=== PATIENT | male | born 1980 | race Caucasian/White ===

== ENCOUNTER 2020-12-14 18:14 | Emergency (ER) | payer SELFPAY ==
--- NOTE | 2020-12-14 18:17 | ED.ALLEREA ---
HPI - Allergic Reaction General Chief complaint: Allergic Reaction Stated complaint: allergic rx, stung by bees 15-20 times Time Seen by Provider: 12/14/20 18:31 Source: patient and EMS Mode of arrival: EMS Limitations: no limitations History of Present Illness HPI narrative: 40-year-old male with no significant past medical history presents via EMS for multiple bee stings with systemic reaction. He does not have a prior history of anaphylaxis with bee stings however he was stung by proximally 20 honey bees. He had some shortness of breath, swelling to the extremities, redness and tachycardia. He was given IV fluids but no other medications on transit. MD complaint: allergic reaction Onset (ago): hour(s) (Within the hour of arrival) Exposure: other (Bee sting) Symptoms: rash, itching and dizziness Severity: moderate Treatment prior to arrival: IV fluids Previous Allergic Reaction History: none Related Data Allergies Allergy/AdvReac Type Severity Reaction Status Date / Time amoxicillin Allergy Hives Verified 12/14/20 18:23 Review of Systems Review of Systems: Constitutional: No Fever, No Chills ENT/Mouth: No Ear Pain, No Hoarseness, No sore throat Eyes: No Eye Pain, No Swelling, No Redness, No Foreign Body Cardiovascular: No Chest Pain, positive SOB, positive tachycardia Respiratory: No Cough, No Dyspnea Gastrointestinal: No Nausea, No Vomiting, No Diarrhea, No abdominal Pain Genitourinary: No Dysuria, No Hematuria Musculoskeletal: positive extremity pain, No Myalgias, No Joint Swelling Skin: No Skin lacerations, positive rash to extremities Neuro: No Weakness, No Numbness, No Paresthesias, No Loss of Consciousness, No Dizziness, No Headache Psych: No Anxiety/Panic, No Depression Heme/Lymph: no easy bruising, no Lymphadenopathy Endocrine: No Polyuria, No Polydipsia Yes all other systems are reviewed and are negative [facility] Past Medical History Attestation statement: The following information was validated with the patient. Source: old records reviewed Social History Social History Advance Directives: No Advance Directives Information Provided: Yes Physical Exam Vital Signs: Vital Signs: Last Vital Signs Temp 98.3 F 12/14/20 19:10 Pulse 96 12/14/20 19:10 Resp 16 07/17/21 19:10 BP 112/69 12/14/20 19:10 Pulse Ox 96 12/14/20 19:10 Body Mass Index 35.3 Appearance: Alert. Oriented X3. Moderate distress. Head: Normal external exam. Normocephalic. Atraumatic. No Glynn signs noted. No raccoon eyes noted Eyes: PERRLA. EOMI. Conjunctiva and sclera normal. Eyelids normal. ENT: Pharynx normal. Uvula midline. Moist mucous membranes. No trismus noted. No drooling noted. No muffled voice noted. No angioedema, no tracheal stridor Neck: Normal inspection. Neck supple. No adenopathy. CVS: Tachycardic heart rate and rhythm. Heart sound normal. No murmurs noted. Pulses equal to all extremities. Respiratory: No respiratory distress. Painless inspiration. Lung sounds clear to auscultation all lobes. Chest nontender. No accessory muscle usage noted or decreased air movement noted. Abdomen: Soft and nontender. Bowel sounds normal in all 4 quadrants. No distention noted. No organomegaly noted. No visible injury noted. Back: No CVA tenderness. Full range of motion noted. Skin: Skin warm and dry. Erythema noted to abdomen, bilateral thighs, and face. Normal skin turgor. Extremities: No lower extremity edema. Extremities exhibit normal range of motion. Extremities nontender. Neuro: cranial nerves 2-12 intact, no focal neural deficits, strength 5/5 to all extremities, No motor deficit. No sensory deficit. Course Course Course Narrative: 40-year-old male presents for allergic reaction after multiple bee stings. Received IV fluids while on transit, will give Solu-Medrol 125, Pepcid 20, and Benadryl 50 IV. Will monitor. 8:00 p.m. lung sounds clear to auscultation, no indication of erythema or rash to any extremity or chest. Plan of care is to discharge home with follow-up with primary care physician for allergy testing. Patient verbalized understanding of and agrees plan of care discharge home. MDM - Allergic Reaction Differential Diagnosis Differential diagnosis: Likely anaphylaxis, allergic reaction and urticaria Medical Records Attestation: I reviewed the patient's medical records. Discharge Plan Discharge Clinical Impression: Allergic reaction to bee sting Allergic reaction Qualifiers: Encounter type: initial encounter Qualified Code(s): T78.40XA - Allergy, unspecified, initial encounter Patient Disposition: Home, Self-Care Instructions: Insect Bite or Sting (ED), General Allergic Reaction (ED) Additional Instructions: You were evaluated for multiple bee stings. We did treat for an allergic reaction. Please take Benadryl 50 mg every 6 hours for the next 3 days. Please take Pepcid 20 mg every 12 hours for the next 3 days. These medications will help reduce histamine response. Please follow-up with primary care for allergy testing. Thank you for choosing this emergency department for evaluation. Please follow-up with primary care physician as needed. Return to the emergency department for any new, concerning, or worsening symptoms.
[2020-12-14 18:23] VITALS: BP 116/79; BP 122/88; PULSE 101; PULSE 90; RESP 16; TEMP 36.6; O2SAT 97; BMI 35.3
[2020-12-14] MEDS: methylPREDNISolone Sod Succ 125 MG/2 ML VIAL IVPUSH (18:33)
[2020-12-14] MEDS: diphenhydrAMINE HCL 50 MG/ML VIAL IVPUSH (18:33)
[2020-12-14] MEDS: Famotidine/PF 20 MG/2 ML VIAL IVPUSH (18:33)
[2020-12-14 19:10] VITALS: BP 112/69; PULSE 96; RESP 16; TEMP 36.8; O2SAT 96
== END 2020-12-14 20:18 | disposition home or self-care (01) ==
PROVIDERS: Emergency Provider Internal Medicine
DX: T63.441A Toxic effect of venom of bees, accidental (unintentional), initial encounter (principal); Y92.9 Unspecified place or not applicable
CPT/HCPCS: 96374; 96375; 99284; J1200; J2930

== ENCOUNTER 2023-07-27 01:29 | Emergency (ER) | payer SELFPAY ==
[2023-07-27 01:32] VITALS: BP 163/97; PULSE 84; RESP 18; TEMP 36.7; O2SAT 96; BMI 36.5
[2023-07-27 01:45] LABS: MANUAL DIFF FLAG NO
[2023-07-27 01:47] LABS: Basophils Percent Auto 0.3 % (0-2); Eosinophils Absolute Auto 0.1 X10*3/uL (0.0-0.4); Eosinophils Percent Auto 0.6 % (0-4); Hematocrit 43.2 % (42.0-52.0); Hemoglobin 15.2 g/dl (14.0-18.0); Imm Gran Abs Auto 0.07 X10*3/uL (0.00-0.03); Imm Gran Pct Auto 0.4 % (0.0-0.4); Lymphocytes Absolute Auto 2.7 X10*3/uL (1.2-4.9); Lymphocytes Percent Auto 17.1 % (20-40); Mean Corpuscular HGB Conc 35.2 g/dl (31.0-36.0); Mean Corpuscular Hemoglobin 30.2 pg (27.0-33.0); Mean Corpuscular Volume 85.9 fL (80.0-98.0); Mean Platelet Volume 10.5 fL (9.4-12.4); Monocytes Absolute Auto 1.1 X10*3/uL (0.1-1.2); Monocytes Percent Auto 6.9 % (2-11); Neutrophils Absolute Auto 11.7 x10*3/uL (2.0-8.3); Neutrophils Percent Auto 74.7 % (45-73); Platelet Count 230 X10*3/uL (160-400); Red Blood Count 5.03 X10*6/uL (4.60-5.80); White Blood Count 15.7 X10*3/uL (4.8-10.8)
[2023-07-27 02:01] LABS: Alanine Aminotransferase 81 U/L (0-40); Albumin Level 4.9 g/dL (3.5-5.0); Alkaline Phosphatase 65 U/L (39-117); Anion Gap 18 (12-20); Aspartate Amino Transferase 40 U/L (5-37); Bilirubin Total 0.6 mg/dL (0.0-1.0); Blood Urea Nitrogen 16 mg/dL (9-16); Carbon Dioxide 25 mmol/L (22-29); Chloride 103 mmol/L (96-108); Creatinine Clr Calc Pharmacy 81.7; Estimated Glomerular Filt Rate 56; Glucose Random 128 mg/dL (60-115); Potassium 4.6 mmol/L (3.3-5.1); Sodium 141 mmol/L (135-145); Total Protein 7.5 g/dL (6.5-8.0)
--- NOTE | 2023-07-27 02:24 | MHC.EDTECH ---
Patient said he is not able to give urine sample at this time .
[2023-07-27 03:48] VITALS: BP 155/93; PULSE 90; RESP 16; TEMP 37.2
--- NOTE | 2023-07-27 03:51 | PC.NURSE ---
pt reports wants to leave; has not been evaluated by ed provider. pt states hes aware of risks of leaving however feels his sx have resolved. pt educated to follow up with pcp or return if any sx return/worsen. pt axox4 ambulatory with steady gait.
== END 2023-07-27 03:55 | disposition left against medical advice (07) ==
PROVIDERS: Emergency Provider Emergency Medicine
DX: R10.9 Unspecified abdominal pain (principal); Z79.899 Other long term (current) drug therapy
CPT/HCPCS: 36415; 80053; 85025; 99283

== ENCOUNTER 2023-08-28 09:22 | Emergency (ER) | payer SELFPAY ==
--- NOTE | ~2023-08-28 | CT_ITS ---
EXAMINATION: CT abdomen pelvis wo IV con CLINICAL INFORMATION: Reason for Exam left flank pain, N/V COMPARISON: No prior CT available for comparison. TECHNIQUE: Multidetector volumetric imaging was performed from the superior aspect of the liver through the pubic symphysis , noncontrast this study. Sagittal and coronal reformatted images were obtained on the technologist's workstation. This CT examination was performed using dose optimization techniques as appropriate, variously including the following: *Automated exposure control *Adjustment of mA and/or kV according to patient size (this includes techniques or standardized protocols for targeted exams where dose is matched to indication/reason for exam; i.e. extremities or head) *Use of iterative reconstruction technique DLP: 799 mGy-cm FINDINGS: LOWER THORAX: Included lung bases are clear. HEPATOBILIARY: Diffusely hypodense liver suggesting hepatic steatosis. No CT evidence of liver lesion. Focal hypodense area in the liver left lobe adjacent to the gallbladder, the location is common for focal fat sparing. GALLBLADDER: Gallbladder unremarkable. SPLEEN: Spleen is normal in size. PANCREAS: No focal mass or ductal dilatation. STOMACH AND GASTROINTESTINAL TRACT: Stomach is grossly unremarkable. There is no bowel distention or thickening. No CT evidence of appendicitis. ADRENALS: No adrenal nodules. KIDNEYS/URETERS: Left renal hydronephrosis and hydroureter due to 9 x 5 mm obstructing stone in the distal left ureter proximal to the left ureterovesicular junction. There is mild perinephric and periureteric fat stranding suggesting high degree obstruction. There are 3 nonobstructing stone in the right kidney measuring up to 4 mm. No right hydronephrosis. There are additional 2 mm stones in the left kidney middle calyx and lower calyx. URINARY BLADDER: Partially decompressed. PELVIC VISCERA: Unremarkable PERITONEUM: No free air or fluid. LYMPH NODES: No lymphadenopathy. VASCULAR:Abdominal aorta normal in size, no aneurysm found. BONES, ABDOMINAL WALL AND SOFT TISSUES: Age-appropriate changes of the spine and skeletal system, no destructive osteolytic or osteosclerotic bone lesion found CT/CT abdomen pelvis wo IV con IMPRESSION: 1. Left renal hydronephrosis and hydroureter due to obstructing 9 x 5 mm stone in the distal left ureter proximal to the left ureterovesicular junction. There is mild perinephric and periureteric fat stranding suggesting high degree obstruction. 2. There are additional bilateral nonobstructing kidney stones. 3. Diffusely hypodense liver suggesting hepatic steatosis. Focal hypodense area in the liver left lobe adjacent to the gallbladder, the location is common for focal fat sparing.
[2023-08-28 09:34] VITALS: BP 161/95; PULSE 83; RESP 18; TEMP 36.6; O2SAT 100; BMI 35.0
--- NOTE | 2023-08-28 10:07 | ED_ITS ---
HPI - General Adult General Chief complaint: General Medical Stated complaint: kidney stone diff breathing Time Seen by Provider: 08/28/23 09:47 Source: patient Mode of arrival: ambulatory Limitations: no limitations History of Present Illness HPI narrative: 42 yo male with history of kidney stones presents to the ER for evaluation of worsening left-sided flank pain that started 3 days ago and has been getting worse. He states he vomited 3 times today due to the pain. He states the pain is located in his left flank, left lower back and has been intensifying. It feels similar to his last kidney stone episode. He states he has had 3 episodes of kidney stones, all passed on his own and did not require intervention. He states he has noticed some small amounts of blood in his urine the last couple of days. Does not have any abdominal pain, dysuria, difficulty emptying his bladder, fever, chills. MD complaint: Left flank pain and blood in the urine Onset (ago): day(s) (3) Location: back Radiation: non-radiation Severity: severe Quality: stabbing Pain Consistency: intermittent Relieving factors: none Exacerbating factors: none Associated symptoms: shortness of breath Treatments prior to arrival: none Related Data Previous Rx's Medication Instructions Recorded cephalexin 500 mg capsule 500 mg PO BID 7 days #14 caps 08/28/23 ondansetron 4 mg disintegrating 4 mg PO Q8H PRN nausea and 08/28/23 tablet vomiting #7 tabs oxycodone 5 mg tablet 5 mg PO Q8H PRN severe pain (scale 08/28/23 score 7-10) #6 tabs tamsulosin 0.4 mg capsule (Flomax) 0.4 mg PO DAILY #14 caps 08/28/23 Allergies Allergy/AdvReac Type Severity Reaction Status Date / Time amoxicillin Allergy Hives Verified 07/27/23 01:32 Review of Systems 2 Review of Systems: Yes all other systems are reviewed and are negative PMFSH Social History Social History Advance Directives: No Advance Directives Information Provided: No Physical Exam ED Vital Signs: Vital Signs - 24 hr 08/28/23 09:34 08/28/23 14:22 Temperature 97.9 F Pulse Rate 83 82 Respiratory Rate 18 14 Blood Pressure 161/95 H 136/86 Pulse Oximetry 100 96 Oxygen Delivery Method Room Air Room Air BMI result Body Mass Index 35.0 Appearance: Alert. Oriented X3. No acute distress. Head: normocephalic, atraumatic. Eyes: Pupils equal, round and reactive to light. ENT: Pharynx normal. No tonsillar swelling or exudate. Neck: Normal inspection. Neck supple. CVS: Normal heart rate and rhythm. Pulses normal. Respiratory: No respiratory distress. Breath sounds normal. Abdomen: Soft and nontender. +BS x4. +CVA tenderness on the left Skin: Skin warm and dry. Normal skin color. Normal skin turgor. No rashes. Extremities: No lower extremity edema. No joint swelling. Neuro/psych: Oriented X 3. No motor deficit. No sensory deficit. CN II-XII intact. Normal speech and cognition. Course Reevaluation(s) Reevaluation #1: Pain improved with pain medications. BP remained stable. Patient is getting 2 L of lactated Ringer's. Time: 14:25 Medications Administered Generic Name Dose Route Start Last Admin Trade Name Freq PRN Reason Stop Dose Admin Lactated Ringer's 1,000 mls @ 999 mls/hr 08/28/23 14:00 08/28/23 14:12 Lr IV 08/28/23 15:00 999 mls/hr .Q1H1M JEANNETTE Administration Discontinued Medications Generic Name Dose Route Start Last Admin Trade Name Freq PRN Reason Stop Dose Admin Sodium Chloride 1,000 mls @ 999 mls/hr 08/28/23 10:00 08/28/23 11:03 Ns IV 08/28/23 11:00 999 mls/hr .Q1H1M JEANNETTE Administration Lactated Ringer's 1,000 mls @ 999 mls/hr 08/28/23 12:45 08/28/23 12:50 Lr IV 08/28/23 13:45 999 mls/hr .Q1H1M JEANNETTE Administration Ketorolac Tromethamine 15 mg 08/28/23 09:47 08/28/23 11:02 Ketorolac Tromethamine 15 Mg/Ml Vial IVPUSH 08/28/23 09:48 15 mg ONCE ONE Administration Ondansetron HCl 4 mg 08/28/23 09:47 08/28/23 11:01 Ondansetron Hcl 4 Mg/2 Ml Vial IVPUSH 08/28/23 09:48 4 mg ONCE ONE Administration Oxycodone HCl 5 mg 08/28/23 12:37 08/28/23 12:50 Oxycodone Hcl Immed Release 5 Mg Tablet PO 08/28/23 12:38 5 mg ONCE ONE Administration Tamsulosin HCl 0.4 mg 08/28/23 12:37 08/28/23 12:50 Tamsulosin Hcl 0.4 Mg Capsule PO 08/28/23 12:38 0.4 mg ONCE ONE Administration Medical Decision Making Medical Decision Making [facility] Narrative: 42-year-old male with a history of kidney stones presents to the ER for evaluation of severe left-sided flank pain, on and off for the last 3 days. Associated with vomiting today. Pain is similar to previous kidney stone presentation. Labs showing mild leukocytosis 12.4. There is blood in the urine. Normal renal function. CT scan performed with concern for kidney stone and this reveals a 9 x 5 mm stone in the distal left ureter with hydronephrosis, perinephric stranding suggesting a high degree obstruction. Urology was consulted. Dr. Hdz is recommended 2 additional L of LR, pain control, keflex BID, flomax and office follow up on Wednesday morning at 8:30. Differential Diagnosis Differential Diagnoses: The differential diagnosis associated with the presentation includes Obstructing kidney stone, UTI, pyelonephritis, splenic injury, diverticulitis Admission/Observation Consideration of admission/observation: Escalation of care including admission/observation considered Obstructing kidney stone, unlikely to pass however pain was well controlled Consult Healthcare Provider Management of the patient was discussed with: Supervisor [employer] Dr. Hdz from Urology Lab Data [facility] Lab Attestation statement: I reviewed the patient's lab results. Slight leukocytosis, slight JAY 08/28/23 10:16 08/28/23 10:16 Labs: Lab Results 08/28/23 Range/Units 10:16 WBC 12.4 H (4.8-10.8) X10*3/uL RBC 5.00 (4.60-5.80) X10*6/uL Hgb 15.1 (14.0-18.0) g/dl Hct 42.0 (42.0-52.0) % MCV 84.0 (80.0-98.0) fL MCH 30.2 (27.0-33.0) pg MCHC 36.0 (31.0-36.0) g/dl RDW 12.3 (11.0-16.0) % Plt Count 228 (160-400) X10*3/uL MPV 9.8 (9.4-12.4) fL Immature Gran % (Auto) 0.2 (0.0-0.4) % Neut % (Auto) 77.7 H (45-73) % Lymph % (Auto) 13.2 L (20-40) % Bureau % (Auto) 8.5 (2-11) % Eos % (Auto) 0.2 (0-4) % Baso % (Auto) 0.2 (0-2) % Lymph # (Auto) 1.6 (1.2-4.9) X10*3/uL Bureau # (Auto) 1.1 (0.1-1.2) X10*3/uL Eos # (Auto) 0.0 (0.0-0.4) X10*3/uL Baso # (Auto) 0.0 (0.0-0.2) X10*3/uL Abs Immat Gran (auto) 0.03 (0.00-0.03) X10*3/uL Absolute Neuts (auto) 9.6 H (2.0-8.3) x10*3/uL Absolute Nucleated RBC 0.000 (0.0-0.012) X10*3/uL Nucleated RBC % (auto) 0.0 (0.0-0.2) /100WBC Sodium 138 (135-145) mmol/L Potassium 5.1 (3.3-5.1) mmol/L Chloride 104 (96-108) mmol/L Carbon Dioxide 24 (22-29) mmol/L Anion Gap 15 (12-20) BUN 17 H (9-16) mg/dL Creatinine 1.65 H (0.5-1.4) mg/dL Estim Creat Clear Calc 73.2 Estimated GFR 46 Random Glucose 118 H (60-115) mg/dL Calcium 10.1 (8.4-10.2) mg/dL Magnesium 1.9 (1.6-2.6) mg/dL Total Bilirubin 1.1 H (0.0-1.0) mg/dL Direct Bilirubin 0.4 (0.0-0.5) mg/dL AST 32 (5-37) U/L ALT 53 H (0-40) U/L Alkaline Phosphatase 66 (39-117) U/L Total Protein 7.5 (6.5-8.0) g/dL Albumin 4.8 (3.5-5.0) g/dL Urine Color Yellow Urine Appearance Turbid Urine pH 6.0 (5.0-9.0) Ur Specific Itmann >= 1.030 H (1.005-1.025) Urine Protein Trace (Neg-Trace) mg/dL Urine Glucose (UA) Negative (Negative) mg/dL Urine Ketones Trace (Negative) mg/dL Urine Blood Moderate (2+) H (Negative) Urine Nitrite Negative (Negative) Ur Leukocyte Esterase Negative (Negative) Urine RBC >20 H (0-2) /HPF Urine WBC 0-5 (0-5) /HPF Ur Squamous Epith Cells 0-2 (0-2) /HPF Urine Bacteria None Seen (None Seen) Hyaline Casts 3-5 (0-2) /LPF Independent Interpretation I performed an independent interpretation of an: CT Scan Interpretation: Large stone seen in the distal ureter on the left with hydronephrosis Radiology Impression Discussion of test interpretation with radiology: I have reviewed the radiologist's reading. Radiologist Impression: CT/CT abdomen pelvis wo IV con IMPRESSION: 1. Left renal hydronephrosis and hydroureter due to obstructing 9 x 5 mm stone in the distal left ureter proximal to the left ureterovesicular junction. There is mild perinephric and periureteric fat stranding suggesting high degree obstruction. 2. There are additional bilateral nonobstructing kidney stones. 3. Diffusely hypodense liver suggesting hepatic steatosis. Focal hypodense area in the liver left lobe adjacent to the gallbladder, the location is common for focal fat sparing External Record Review External record reviewed: Prior outpatient labs Prescription Management I considered prescription management with: Pain Medication and Antibiotic Critical Care Time Critical Care Time Critical Care Time: Yes Total Critical Care Time: 39 Attestation: I have personally provided critical care time exclusive of time spent on separately billable procedures. Time includes review of lab data, radiology results, discussion with consultants, and monitoring for potential decompensation. Intervention performed as documented. Discharge Plan Discharge Clinical Impression: Hydronephrosis with renal calculous obstruction Patient Disposition: Home, Self-Care Instructions: Ureteral Stones (ED) Additional Instructions: A large kidney stone approximately 9 x 5 mm was seen in your distal left ureter. The Urology DrThom Was contacted who is recommending pain control, Flomax, antibiotics and close outpatient follow-up. You have an appointment with Dr. Hdz on Wednesday morning at 08:15. Take all medications as prescribed. If you develop new or worsening symptoms call 911 or come back to the ER for further evaluation. Prescriptions: New cephalexin 500 mg capsule 500 mg PO BID 7 Days Qty: 14 0RF tamsulosin [Flomax] 0.4 mg capsule 0.4 mg PO DAILY Qty: 14 0RF ondansetron 4 mg tablet,disintegrating 4 mg PO Q8H PRN (Reason: nausea and vomiting) Qty: 7 0RF oxycodone 5 mg tablet 5 mg PO Q8H PRN (Reason: severe pain (scale score 7-10)) Qty: 6 0RF Rx Instructions: Partial Fill upon patient request. Referrals: [facility] [place] [Provider Group] - 08/30/23 8:15 am ( Left renal hydronephrosis and hydroureter due to obstructing 9 x 5 mm stone in the distal left ureter proximal to the left ureterovesicular junction. There is mild perinephric and periureteric fat stranding suggesting high degree obstruction.) Stand Alone Forms: Work/School Release
[2023-08-28 10:20] LABS: MANUAL DIFF FLAG NO
[2023-08-28 10:21] LABS: Basophils Percent Auto 0.2 % (0-2); Eosinophils Percent Auto 0.2 % (0-4); Hemoglobin 15.1 g/dl (14.0-18.0); Imm Gran Abs Auto 0.03 X10*3/uL (0.00-0.03); Imm Gran Pct Auto 0.2 % (0.0-0.4); Lymphocytes Absolute Auto 1.6 X10*3/uL (1.2-4.9); Lymphocytes Percent Auto 13.2 % (20-40); Mean Corpuscular Hemoglobin 30.2 pg (27.0-33.0); Mean Platelet Volume 9.8 fL (9.4-12.4); Monocytes Absolute Auto 1.1 X10*3/uL (0.1-1.2); Monocytes Percent Auto 8.5 % (2-11); Neutrophils Absolute Auto 9.6 x10*3/uL (2.0-8.3); Neutrophils Percent Auto 77.7 % (45-73); Platelet Count 228 X10*3/uL (160-400); Red Cell Distribution Width 12.3 % (11.0-16.0); White Blood Count 12.4 X10*3/uL (4.8-10.8)
[2023-08-28 10:22] LABS: Appearance Urine Turbid; Color Urine Yellow; Glucose Urine UA Negative (Negative); Leukocyte Esterase Urine Negative (Negative); Nitrite Urine Negative (Negative); Specific Gravity - Urine >= 1.030 (1.005-1.025); UMIC TRIGGER UACC YES; Urine Blood Moderate (2+) (Negative); Urine Ketones Trace mg/dL (Negative); Urine Protein Trace mg/dL (Neg-Trace)
[2023-08-28 10:27] LABS: Bacteria Urine None Seen (None Seen); RBC Urine >20 /HPF (0-2); Squamous Epithelial Cell Urine 0-2 /HPF (0-2); WBC Urine 0-5 /HPF (0-5)
[2023-08-28 10:41] LABS: Alanine Aminotransferase 53 U/L (0-40); Albumin Level 4.8 g/dL (3.5-5.0); Alkaline Phosphatase 66 U/L (39-117); Anion Gap 15 (12-20); Aspartate Amino Transferase 32 U/L (5-37); Bilirubin Direct 0.4 mg/dL (0.0-0.5); Bilirubin Total 1.1 mg/dL (0.0-1.0); Blood Urea Nitrogen 17 mg/dL (9-16); Calcium 10.1 mg/dL (8.4-10.2); Carbon Dioxide 24 mmol/L (22-29); Chloride 104 mmol/L (96-108); Creatinine Clr Calc Pharmacy 73.2; Estimated Glomerular Filt Rate 46; Glucose Random 118 mg/dL (60-115); Magnesium 1.9 mg/dL (1.6-2.6); Potassium 5.1 mmol/L (3.3-5.1); Sodium 138 mmol/L (135-145); Total Protein 7.5 g/dL (6.5-8.0)
[2023-08-28] MEDS: ondansetron HCL 4 MG/2 ML VIAL IVPUSH (11:01)
[2023-08-28] MEDS: Ketorolac Tromethamine 15 MG/ML VIAL IVPUSH (11:02)
[2023-08-28] MEDS: 0.9 % Sodium Chloride 1,000 ML 999 ML IV (11:03)
[2023-08-28] MEDS: Tamsulosin HCL 0.4 MG CAPSULE PO (12:50)
[2023-08-28] MEDS: oxyCODONE HCl Immed Release 5 MG TABLET PO (12:50)
[2023-08-28] MEDS: Lactated Ringers 1,000 ML 999 ML IV ×2 (12:50→14:12)
[2023-08-28 14:22] VITALS: BP 136/86; PULSE 82; RESP 14; O2SAT 96
[2023-08-28 15:10] VITALS: BP 128/86; PULSE 89; RESP 16; TEMP 36.6; O2SAT 94
[2023-08-28 15:11] VITALS: BP 128/86; PULSE 89; RESP 16; TEMP 36.6; O2SAT 94
== END 2023-08-28 15:12 | disposition home or self-care (01) ==
PROVIDERS: Physician Assistant; Emergency Provider Student in an Organized Health Care Education/Training Program
DX: N13.2 Hydronephrosis with renal and ureteral calculous obstruction (principal)
CPT/HCPCS: 36415; 74176; 80048; 80076; 81001; 83735; 85025; 96374; 96375; 99284; J1885; J2405; J7120

== ENCOUNTER 2023-08-30 08:18 | Outpatient (AMB) | payer SELFPAY ==
--- NOTE | 2023-08-30 08:26 | MHC.OFFVIS ---
Intake Intake Visit Reasons: ER-obstructing ureteral stone Intake Note: New Patient presents today to establish treatment for obstructing uretral stone Meds- Tamsulosin Allergies to Antibiotic- Amoxicillin Blood Thinner- None Patient stated he does not have any pain today and he is able to urinate very well. Beading Sawyer Required: No Accompanied by: Self / Same As Patient Allergies amoxicillin Allergy (Verified 08/30/23 08:42) Hives HPI HPI Comments History of Present Illness Details Clarke is a 43-year-old male who was in the ED over the weekend with left flank pain. CT imaging noted distal left ureteral stone with hydronephrosis and bilateral kidney stones. The patient states he had a kidney stone attack about 10 years ago and he passed the stone at that time. About 4 weeks ago he had pain on his left side that resolved. He states that he was discharged on medications he is taking the Flomax. He no longer has needed nausea or pain medication and did not take the antibiotics. He thinks he may have passed the stone because he has no more pain. He states that his father has kidney stones. I have reviewed the CT scan imaging films with the patient. Examination no CVA tenderness elicited or abdominal tenderness on exam. The ureteral stone measured 9 mm and due to the size is less likely to pass however at this time as the patient is asymptomatic he is not interested in a procedure. Plan will be to evaluate further with renal ultrasound in about 2 weeks if the patient has acute pain he will call the office. Discussed metabolic workup in the future with 24 hour urine collection. He was given a plastic strainer and a copy of the CT scan report. Review of Systems Const All systems reviewed & are unremarkable except as noted in HPI and below Reports no additional complaints Eyes Reports no additional complaints ENT Reports no additional complaints Card Reports no additional complaints Resp Reports no additional complaints GI Reports no additional complaints Reports as per HPI Musc Reports no additional complaints Skin/Breast Reports system reviewed and no additional complaints, except as documented Neuro Reports no additional complaints Psych Reports no additional complaints Endo Reports no additional complaints Alexis/Lymph Reports no additional complaints Aller/Immun Reports no additional complaints Physical Exam Const General: healthy appearing, no acute distress and well developed Orientation/consciousness: patient oriented x3 HEENT Head: Yes normocephalic and Yes atraumatic Eyes Conjunctivae: conjunctivae normal Neck Neck: Yes normal visual inspection Chest Chest palpation & inspection: normal inspection of the chest Resp Effort & Inspection: normal respiratory effort Cardio Rate: regular rate GI Inspection: Yes normal to inspection Palpation (GI): Soft to palpation Skin General skin exam: no rashes or lesions noted Neuro General: patient oriented x3 Extrem General: No pedal edema Psych Appearance: grossly normal Affect: normal affect Results AMB Urinalysis, Automated UA Leukoctes 0 Juan A/uL Last Edit by Melinda Portersummer Porter, [facility] on 08/30/23 08:45 UA Nitrite Negative Last Edit by Melinda Portersummer Rodneya, [facility] on 08/30/23 08:45 UA Urobilinogen 0.2 mg/dL [facility], [facility] on 08/30/23 08:45 UA Protein 15 mg/dL Last Edit by Melinda Porter Porter, [facility] on 08/30/23 08:45 UA pH 6.0 Last Edit by [facility], [facility] on 08/30/23 08:45 UA Blood 200 Kelechi/uL Last Edit by [facility], [facility] on 08/30/23 08:45 UA Specific [place] 1.020 Last Edit by [facility], [facility] on 08/30/23 08:45 UA Ketone Negative Last Edit by [facility], [facility] on 08/30/23 08:45 UA Bilirubin 0 mg/dL Last Edit by [facility], [facility] on 08/30/23 08:45 UA Glucose 0 mg/dL Last Edit by [facility], [facility] on 08/30/23 08:45 Results Reviewed Results Reviewed: Date of Service: 08/28/23 EXAMINATION: CT abdomen pelvis wo IV con CLINICAL INFORMATION: Reason for Exam left flank pain, N/V COMPARISON: No prior CT available for comparison. TECHNIQUE: Multidetector volumetric imaging was performed from the superior aspect of the liver through the pubic symphysis , noncontrast this study. Sagittal and coronal reformatted images were obtained on the technologist's workstation. This CT examination was performed using dose optimization techniques as appropriate, variously including the following: *Automated exposure control *Adjustment of mA and/or kV according to patient size (this includes techniques or standardized protocols for targeted exams where dose is matched to indication/reason for exam; i.e. extremities or head) *Use of iterative reconstruction technique DLP: 799 mGy-cm FINDINGS: LOWER THORAX: Included lung bases are clear. HEPATOBILIARY: Diffusely hypodense liver suggesting hepatic steatosis. No CT evidence of liver lesion. Focal hypodense area in the liver left lobe adjacent to the gallbladder, the location is common for focal fat sparing. GALLBLADDER: Gallbladder unremarkable. SPLEEN: Spleen is normal in size. PANCREAS: No focal mass or ductal dilatation. STOMACH AND GASTROINTESTINAL TRACT: Stomach is grossly unremarkable. There is no bowel distention or thickening. No CT evidence of appendicitis. ADRENALS: No adrenal nodules. KIDNEYS/URETERS: Left renal hydronephrosis and hydroureter due to 9 x 5 mm obstructing stone in the distal left ureter proximal to the left ureterovesicular junction. There is mild perinephric and periureteric fat stranding suggesting high degree obstruction. There are 3 nonobstructing stone in the right kidney measuring up to 4 mm. No right hydronephrosis. There are additional 2 mm stones in the left kidney middle calyx and lower calyx. URINARY BLADDER: Partially decompressed. PELVIC VISCERA: Unremarkable PERITONEUM: No free air or fluid. LYMPH NODES: No lymphadenopathy. VASCULAR:Abdominal aorta normal in size, no aneurysm found. BONES, ABDOMINAL WALL AND SOFT TISSUES: Age-appropriate changes of the spine and skeletal system, no destructive osteolytic or osteosclerotic bone lesion found IMPRESSION: 1. Left renal hydronephrosis and hydroureter due to obstructing 9 x 5 mm stone in the distal left ureter proximal to the left ureterovesicular junction. There is mild perinephric and periureteric fat stranding suggesting high degree obstruction. 2. There are additional bilateral nonobstructing kidney stones. 3. Diffusely hypodense liver suggesting hepatic steatosis. Focal hypodense area in the liver left lobe adjacent to the gallbladder, the location is common for focal fat sparing. Assessment & Plan Assessment & Plan (1) Bilateral kidney stones: Code(s): N20.0 - Calculus of kidney (2) Hydronephrosis, left: Code(s): N13.30 - Unspecified hydronephrosis (3) Left ureteral stone: Code(s): N20.1 - Calculus of ureter Plan The ureteral stone measured 9 mm and due to the size is less likely to pass however at this time as the patient is asymptomatic he is not interested in a procedure. Plan will be to evaluate further with renal ultrasound in about 2 weeks if the patient has acute pain he will call the office. Discussed metabolic workup in the future with 24 hour urine collection. He was given a plastic strainer and a copy of the CT scan report. Orders: Orders AMB Urinalysis Automated Today R33.9 - Retention of urine, unspecified Patient Instructions: The patient had an opportunity to ask questions regarding treatment plan. All questions were answered. Imaging, Laboratory studies and physical exam results were discussed and reviewed in detail. No major barriers to understanding were identified. The patient expressed understanding and agreement with the above treatment plan. The patient is aware they should contact our office by phone for worsening of their current condition or the appearance of new symptoms. Compliance is encouraged with any medications and followup testing that is ordered. It is a privilege to be allowed the opportunity to participate in the urologic care of your patient. If you have any questions or concerns regarding treatment for the above conditions please do not hesitate to contact me. The office telephone contact is [phone]. This note is constructed in part using voice recognition software. While every effort has been made to ensure accuracy aviation safety technician errors may have been included. Yours sincerely, Mike Ashford MD Coding Level of Care Code New Pt Level 4 (76559) Diagnoses Bilateral kidney stones N20.0 Hydronephrosis, left N13.30 Left ureteral stone N20.1
== END 2023-08-30 09:00 | disposition home or self-care (01) ==
PROVIDERS: Visit Provider Urology
DX: R33.9 Retention of urine, unspecified (principal)
CPT/HCPCS: 99204

== ENCOUNTER → 2023-08-30 08:18 | Outpatient (BNVA) | payer SELFPAY | PROVIDERS: Visit Provider Urology | DX: N13.2 Hydronephrosis with renal and ureteral calculous obstruction (principal); R33.9 Retention of urine, unspecified | CPT/HCPCS: 81003; 99202 ==

== ENCOUNTER 2023-09-01 14:34 | Day surgery (SDC) | payer SELFPAY ==
[2023-09-01] VITALS (8 sets, daily range): BP systolic 124–165; BP diastolic 76–98; PULSE 82–99; RESP 16–18; TEMP 36.1–37.4; O2SAT 95–98; BMI 37.2
--- NOTE | ~2023-09-01 | FL_ITS ---
EXAMINATION: XR FLUOROSCOPY WITH IMAGES CLINICAL INFORMATION: Left distal ureteral stone COMPARISON: CT of the abdomen and pelvis August 28, 2023 TECHNIQUE: Fluoroscopy Supervised By: Dr. Ashford. Fluoroscopy Time: 29 seconds. Cumulative Dose: 13.8 mGy. Images: 3. FINDINGS: Initial image demonstrates opacification of the left distal ureter. There is an oval-shaped filling defect questionable for stone. Second image demonstrates wire projecting over the left renal collecting system and proximal and mid ureter. Final image demonstrates distal end of a left internal ureteral stent with pigtail projecting over the bladder. FL/FL guidance in OR IMPRESSION: Fluoroscopy guidance for left retrograde exam and stent placement.
--- NOTE | 2023-09-01 16:27 | HO.ANESPROP2 ---
HPI - Anesthesia Eval Consult details Narrative: for cysto, retro, laser. PMFSH Active Problems Active Problems: All Active Problems (Updated 08/30/23 @ 08:38 by Mike Ashford MD) Left ureteral stone (Acute) Hydronephrosis, left (Acute) Bilateral kidney stones (Acute) Family History Family history of problems with anesthesia: No Surgical History Surgical History (Updated 09/01/23 @ 15:52 by Nevaeh Parker) No pertinent past surgical history History of Problems with Anesthesia: No Social History Social History Patient Tobacco Use Status: Never used Tobacco Use of substances other than those prescribed or required for medical reasons: No Are you DNR?: No Advance Directives: No Advance Directives Information Provided: No Meds Allergies Allergy/AdvReac Type Severity Reaction Status Date / Time amoxicillin Allergy Severe Hives Verified 09/01/23 15:50 Exam Height,Weight and Vital Signs: Height 5 ft 9 in Weight 114.124 kg Last Vital Signs Temp 99.3 F 09/01/23 15:59 Pulse 99 09/01/23 15:59 Resp 16 09/01/23 15:59 BP 165/93 H 09/01/23 15:59 Pulse Ox 97 09/01/23 15:59 O2 Del Method Room Air 09/01/23 15:59 Airway Mallampati Class: II TM Dist: >3cm Neck ROM: Full Loose/Missing/Broken Teeth: No Heart: ok Lungs: ok Assessment and Plan Assessment Anesthesia Assessment: Anesthesia Plan Discussed and Chart Reviewed Final Anesthetic Review Family History of Problems with Anesthesia: No History of Problems with Anesthesia: No NPO: Yes ASA Class: II Final Preanesthetic Review: No Changes in Pt Med Stat, Meds/Allgs Chart Reviewed, Consent Obtained/Reviewed and Anes Risks/Benef Reviewed Patient Risk: Low Procedure Risk: Low Anesthetic Plan Anesthetic Plan: GA and Agree w/ Assess. and Plan Disposition: Standard PACU
--- NOTE | 2023-09-01 16:31 | MHC.SHP ---
Pre-Procedural Eval Section A - 24 Hr Update-Section A only Date of Service: 09/01/23 The patient is an INPATIENT: No The patient has been examined within 24 hours of the surgical procedure. The History & Physical has been completed within 30 days and I have reviewed it.: Yes Section B - Complete if H&P > 30 days Chief Complaint: Calculus of kidney Allergies: Allergies Allergy/AdvReac Type Severity Reaction Status Date / Time amoxicillin Allergy Severe Hives Verified 09/01/23 15:50 Plan Diagnosis/Plan: Unchanged I have reviewed the history and physical and performed a pertinent physical examination on my patient. No changes have occurred unless specified. Cystoscopy Left Ureteroscopy Laser lithotripsy, ureteral stent. Risks discussed included but not limited to, possible need to repeat procedure if stone is not completely fragmented, Irritative voiding symptoms, bladder spasms, urgency, blood in urine. Time Spent With Patient Time: Total time managing care of this patient today ____ minutes.
[2023-09-01] MEDS: Lactated Ringers 1,000 ML 80 ML IVCONT (16:38)
--- NOTE | 2023-09-01 19:13 | P.OP_ITS ---
Operative Note Operative Note Date of Service: 09/01/23 Narrative: PreOperative Diagnosis:?? Left ureteral stone, left hydronephrosis Post Operative Diagnosis:?? Left ureteral stone, left hydronephrosis Procedure: - cystoscopy, left retrograde, left ureteroscopy laser lithotripsy stent insertion, 6 Amharic by multi length, 22-32 cm Surgeon:?Dr Mike Ashford Anesthesia:? General Indications for procedure: Left flank pain CT imaging 9 mm distal left ureteral stone with hydronephrosis. Procedure: After informed consent was verified the patient was brought to the operating placed on the OR table in supine position.? General Anesthesia was administered per protocol.? The patient was placed in lithotomy position, prepped and draped in the usual sterile fashion.? Safety pause time-out and side of surgery confirmed.? Antibiotics confirmed, Levaquin 500 mg IV. 2% lidocaine jelly 10 mL was passed transurethrally. A 22 Amharic cystoscope was inserted transurethrally, the bulbous urethra was within normal limits. The prostatic urethra was nonobstructive. The bladder was visualized.? Both ureteric orifices were in normal position. An open-ended ureteral catheter was passed into the left ureteral orifice and a retrograde examination was performed. There was a filling defect consistent with stone in the distal ureter and dilatation of the ureter proximal this. A guidewire was passed through the ureteral catheter into the kidney. The balloon dilator size 12 fr by 4 cm was passed over the guide - wire the balloon was inflated to 10 mmHg and the intramural ureter was dilated for 45 seconds. The balloon was deflated and removed. After removing the balloon dilator a 2nd guidewire was then passed into the kidney to use as a safety. The cystoscope was removed, leaving both guidewires in place. One guidewire was used as the safety and was attached to the draping. The semi rigid ureteroscope was passed over one of the guidewire to the level of the stone in the ureter. One guidewire was then removed. Laser lithotripsy of the stone was done using the 365 fiber -- total joules 816. There was good fragmentation of the stone. The 0 degree basket was passed through the ureteroscope, to remove the stone fragments to send for analysis. The ureteroscope was removed. The cystoscope was passed over the safety guidewire. A? 6 Amharic by multi length cm stent was placed into the ureter and renal pelvis under a combination of fluoroscopy and direct visualization. The bladder was emptied.? The rigid cystoscope was removed. ? The patient tolerated the procedure well and was brought to the recovery room in stable condition. Complications: None Drains: Ureteral stent as dictated above
[2023-09-01] MEDS: Phenazopyridine HCL 200 MG TABLET PO (19:42)
[2023-09-01] MEDS: oxyCODONE HCl Immed Release 5 MG TABLET 10 MG PO (20:12)
[2023-09-13 21:47] LABS: Stone Source KIDNEY STONE
== END 2023-09-01 20:28 | disposition home or self-care (01) ==
PROVIDERS: Visit Provider Urology
PROC: (CPT 52356; principal; 2023-09-01 17:00)
DX: N13.2 Hydronephrosis with renal and ureteral calculous obstruction (principal); N13.1 Hydronephrosis with ureteral stricture, not elsewhere classified; Z88.0 Allergy status to penicillin
CPT/HCPCS: 52356; 52341; 82365; 88300; C1726; C1769; C2617; J1100; J1885; J1956; J2250; J2405; J2704; J3010; Q9967

== ENCOUNTER → 2023-09-01 14:34 | Outpatient (BNV) | payer SELFPAY | PROVIDERS: Visit Provider Urology | DX: N20.1 Calculus of ureter (principal); N13.30 Unspecified hydronephrosis | CPT/HCPCS: 52356; 74420 ==

== ENCOUNTER 2023-09-10 08:17 | Outpatient (AMB) | payer SELFPAY ==
--- NOTE | 2023-09-10 08:34 | A.OFFVIS_ITS ---
Intake Intake Visit Reasons: Stent Removal Intake Note: Patient presents today for a CYSTOSCOPY/STENT REMOVAL Procedure: Meds: None Allergies to Antibiotic: No Known Allergies Blood Thinner: None Disposable Uro-G HD Cystoscope Cannula: Lot: [id number] Exp: 04/22/2026 [employer] Required: No Accompanied by: Self / Same As Patient Allergies amoxicillin Allergy (Severe, Verified 09/10/23 08:37) Hives Medication List - Last Reconciled 09/10/23 by Mike Ashford MD ondansetron 4 mg PO Q8H PRN oxycodone 5 mg PO .[id number] PRN phenazopyridine (Pyridium) 200 mg PO TID PRN tamsulosin (Flomax) 0.4 mg PO DAILY HPI HPI Comments History of Present Illness Details 09/10/23--follow-up for cystoscopy stent removal. Status post cystoscopy right ureteroscopy laser lithotripsy left ureteral stone, 09/01/2023. Stone analysis is pending. Cystoscopy left ureteral stent removed without difficulty. Diet sheet provided including information on diet modification to decrease risk of forming more kidney stones. low oxalate diet and specific foods to avoid including certain green leafy vegetables, chocalate, nuts, tea, beets, rubarb; low sodium, decreased use of animal protein and the importance of hydration drinking up to 2-2.5 liters of fluids and use of adding lemon to water to increase citrate in the diet. I also discussed workup to include 24 hour urine, patient was given lab information to call regarding [id number] cost if he does not have insurance coverage. Plan--discussed 24 hour urine collection, stone analysis pending, monitor kidney stones follow-up in 10 months renal ultrasound prior. Review of chart: 08/30/23--Clarke is a 43-year-old male who was in the ED over the weekend with left flank pain. CT imaging noted distal left ureteral stone with hydronephrosis and bilateral kidney stones. The patient states he had a kidney stone attack about 10 years ago and he passed the stone at that time. About 4 weeks ago he had pain on his left side that resolved. He states that he was discharged on medications he is taking the Flomax. He no longer has needed nausea or pain medication and did not take the antibiotics. He thinks he may have passed the stone because he has no more pain. He states that his father has kidney stones. I have reviewed the CT scan imaging films with the patient. Examination no CVA tenderness elicited or abdominal tenderness on exam. The ureteral stone measured 9 mm and due to the size is less likely to pass however at this time as the patient is asymptomatic he is not interested in a procedure. Plan will be to evaluate further with renal ultrasound in about 2 weeks if the patient has acute pain he will call the office. Discussed metabolic workup in the future with 24 hour urine collection. He was given a plastic strainer and a copy of the CT scan report. 09/10/23--Plan--discussed 24 hour urine c ollection, stone analysis pending, ata tor kidney stones follow-up in 10 months renal ultrasound prior. [facility] Surgical History No pertinent past surgical history Social History Patient Tobacco Use Status: Never used Tobacco Review of Systems Const All systems reviewed & are unremarkable except as noted in HPI and below Reports no additional complaints Eyes Reports no additional complaints ENT Reports no additional complaints Card Reports no additional complaints Resp Reports no additional complaints GI Reports no additional complaints Reports as per HPI Musc Reports no additional complaints Skin/Breast Reports system reviewed and no additional complaints, except as documented Neuro Reports no additional complaints Psych Reports no additional complaints Endo Reports no additional complaints Alexis/Lymph Reports no additional complaints Aller/Immun Reports no additional complaints Office Procedures Cystoscopy Consent Discussed risk and benefit or proposed procedure with the patient. Information consent for procedure given to the patient. Discussed technical aspects, risks, benefits and alternatives in full. Addressed all of the patient's questions and concerns regarding the procedure. The patient demonstrated knowledge and understanding. They wish to proceed with this procedure. Preparation The patient was prepped in the usual manner. A accountant machine processing was present and in the room. Genitalia was prepped with betadine solution in a sterile manner. Lidocaine Jelly 2% was placed into the urethra and 16Fr flexible Olympus cystoscope was inserted into the meatus after adequate lubrication. Procedure Time out per protocol performed. Bladder Inspection Cystoscopy findings: mild edema ureteral orifice which is expected, distal end of ureteral stent visualized. The grasping forceps were used and the stent was removed without difficulty. [id number] with stent removal DISPOSABLE SCOPE URO-G FLEXIBLE SCOPE Procedure code (CPT) selection complete Office Meds lidocaine HCl 2 % mucosal jelly in applicator Performing Provider: Mike Ashford MD Performing Location: [facility] Administered by: Faisal Cadet LPN on 09/10/23 08:34 Dose Route Admin Location Dispensed Lot Number Expiration Date [facility] Chief Psychologist 10 mL intra-urethral 20 mL naproxen 500 mg tablet Performing Provider: Mike Ashford MD Performing Location: [facility] Administered by: Faisal Cadet LPN on 09/10/23 08:34 Dose Route Admin Location Dispensed Lot Number Expiration Date [place] Chief Psychologist 500 mg PO 1 tab ciprofloxacin HCl 500 mg tablet Performing Provider: Mike Ashford MD Performing Location: [facility] Administered by: Faisal Cadet LPN on 09/10/23 08:34 Dose Route Admin Location Dispensed Lot Number Expiration Date [place] Chief Psychologist 500 mg PO 1 tab Results AMB Urinalysis, Automated UA Leukoctes 125 Juan A/uL Last Edit by FARRAH Lawrence on 09/10/23 08:41 2+ [place] 09/10/23 08:41 UA Nitrite Positive Last Edit by FARRAH Lawrence on 09/10/23 08:41 UA Urobilinogen 0.2 mg/dL Last Edit by FARRAH Lawrence on 09/10/23 08:4 1 2+ [place] 09/10/23 08:41 UA Protein 100 mg/dL Last Edit by FARRAH Lawrence on 09/10/23 08:41 2+ [place] 09/10/23 08:41 UA pH 6.0 Last Edit by FARRAH Lawrence on 09/10/23 08:41 UA Blood 200 Kelechi/uL Last Edit by FARRAH Lawrence on 09/10/23 08:41 3+ [place] 09/10/23 08:41 UA Specific [place] 1.015 Last Edit by FARRAH Lawrence on 09/10/23 08: 41 UA Ketone Negative Last Edit by FARRAH Lawrence on 09/10/23 08:41 UA Bilirubin 1 mg/dL Last Edit by FARRAH Lawrence on 09/10/23 08:41 UA Glucose 0 mg/dL Last Edit by FARRAH Lawrence on 09/10/23 08:41 Results Reviewed Results Reviewed: Laboratory Last Values Urine pH (Auto) 6.0 09/10/23 08:38 Specific [place] (Auto) 1.015 09/10/23 08:38 Urine Protein (Auto) 100 mg/dL 09/10/23 08:38 Glucose (UA)(Auto) 0 mg/dL 09/10/23 08:38 Urine Ketones (Auto) Negative 09/10/23 08:38 Urine Blood (Auto) 200 Kelechi/uL 09/10/23 08:38 Urine Nitrite (Auto) Positive 09/10/23 08:38 Urine Bilirubin (Auto) 1 mg/dL 09/10/23 08:38 Urine Urobilinogen (Auto) 0.2 mg/dL 09/10/23 08:38 Leukocyte Esterase (Auto) 125 Juan A/uL 09/10/23 08:38 Date of Service: 08/28/23 EXAMINATION: CT abdomen pelvis wo IV con CLINICAL INFORMATION: Reason for Exam left flank pain, N/V COMPARISON: No prior CT available for comparison. TECHNIQUE: Multidetector volumetric imaging was performed from the superior aspect of the liver through the pubic symphysis , noncontrast this study. Sagittal and coronal reformatted images were obtained on the technologist's workstation. This CT examination was performed using dose optimization techniques as appropriate, variously including the following: *Automated exposure control *Adjustment of mA and/or kV according to patient size (this includes techniques or standardized protocols for targeted exams where dose is matched to indication/reason for exam; i.e. extremities or head) *Use of iterative reconstruction technique DLP: 799 mGy-cm FINDINGS: LOWER THORAX: Included lung bases are clear. HEPATOBILIARY: Diffusely hypodense liver suggesting hepatic steatosis. No CT evidence of liver lesion. Focal hypodense area in the liver left lobe adjacent to the gallbladder, the location is common for focal fat sparing. GALLBLADDER: Gallbladder unremarkable. SPLEEN: Spleen is normal in size. PANCREAS: No focal mass or ductal dilatation. STOMACH AND GASTROINTESTINAL TRACT: Stomach is grossly unremarkable. There is no bowel distention or thickening. No CT evidence of appendicitis. ADRENALS: No adrenal nodules. KIDNEYS/URETERS: Left renal hydronephrosis and hydroureter due to 9 x 5 mm obstructing stone in the distal left ureter proximal to the left ureterovesicular junction. There is mild perinephric and periureteric fat stranding suggesting high degree obstruction. There are 3 nonobstructing stone in the right kidney measuring up to 4 mm. No right hydronephrosis. There are additional 2 mm stones in the left kidney middle calyx and lower calyx. URINARY BLADDER: Partially decompressed. PELVIC VISCERA: Unremarkable PERITONEUM: No free air or fluid. LYMPH NODES: No lymphadenopathy. VASCULAR:Abdominal aorta normal in size, no aneurysm found. BONES, ABDOMINAL WALL AND SOFT TISSUES: Age-appropriate changes of the spine and skeletal system, no destructive osteolytic or osteosclerotic bone lesion found IMPRESSION: 1. Left renal hydronephrosis and hydroureter due to obstructing 9 x 5 mm stone in the distal left ureter proximal to the left ureterovesicular junction. There is mild perinephric and periureteric fat stranding suggesting high degree obstruction. 2. There are additional bilateral nonobstructing kidney stones. 3. Diffusely hypodense liver suggesting hepatic steatosis. Focal hypodense area in the liver left lobe adjacent to the gallbladder, the location is common for focal fat sparing. Assessment & Plan Assessment & Plan (1) Bilateral kidney stones: Code(s): N20.0 - Calculus of kidney Plan Plan--discussed 24 hour urine collection, stone analysis pending, monitor kidney stones follow-up in 10 months renal ultrasound prior. Orders: Orders AMB Cystoscopy Today N20.0 - Calculus of kidney AMB Urinalysis Automated Today Z13.9 - Encounter for screening, unspecified Patient Instructions: The patient had an opportunity to ask questions regarding treatment plan. All questions were answered. Imaging, Laboratory studies and physical exam results were discussed and reviewed in detail. No major barriers to understanding were identified. The patient expressed understanding and agreement with the above treatment plan. The patient is aware they should contact our office by phone for worsening of their current condition or the appearance of new symptoms. Compliance is encouraged with any medications and followup testing that is ordered. It is a privilege to be allowed the opportunity to participate in the urologic care of your patient. If you have any questions or concerns regarding treatment for the above conditions please do not hesitate to contact me. The office telephone contact is [phone]. This note is constructed in part using voice recognition software. While every effort has been made to ensure accuracy cosmetology instructor errors may have been included. Yours sincerely, Mike Ashford MD Coding Level of Care Code Procedure Only Diagnoses Bilateral kidney stones N20.0 CPT Codes Cystoscopy - CPT: 66659-Lhouhamrug with stent removal ([id number])
== END 2023-09-10 09:23 | disposition home or self-care (01) ==
PROVIDERS: Visit Provider Urology
DX: N20.0 Calculus of kidney (principal); Z96.0 Presence of urogenital implants; Z13.9 Encounter for screening, unspecified
CPT/HCPCS: 52310

== ENCOUNTER → 2023-09-10 08:17 | Outpatient (BNVA) | payer SELFPAY | PROVIDERS: Visit Provider Urology | DX: N20.0 Calculus of kidney (principal); Z46.6 Encounter for fitting and adjustment of urinary device; Z79.899 Other long term (current) drug therapy | CPT/HCPCS: 52310; 81003 ==

== ENCOUNTER 2023-11-18 08:14 | Outpatient (AMB) | payer SELFPAY ==
--- NOTE | 2023-11-18 08:16 | A.OFFVIS_ITS ---
Intake Visit Reasons: Litholink Results Intake Note: Patient presents today for Litholink Results: Meds- None Allergies to Antibiotic- Amoxicillin Blood Thinner- None Police Judge Required: No Accompanied by: Self / Same As Patient Allergies amoxicillin Allergy (Severe, Verified 09/10/23 08:37) Mei VAN Comments Details: 11/18/23---Clarke is being followed for nephrolithiasis. I have reviewed 24 hour urine collection: Urine volume is low, urine citrate is low and urine sodium is elevated. I have discussed the importance of increasing fluid intake, and a low-sodium diet. Discussed adding lemon to water as well as drink and limiting to increase citrate in the diet. Stone analysis Calcium oxalate 40% and carbonate apatite 60%. Monitor kidney stones. Review of chart: 09/10/23--follow-up for cystoscopy stent removal. Status post cystoscopy right ureteroscopy laser lithotripsy left ureteral stone, 09/01/2023. Stone analysis is pending. Cystoscopy left ureteral stent removed without difficulty. Diet sheet provided including information on diet modification to decrease risk of forming more kidney stones. low oxalate diet and specific foods to avoid including certain green leafy vegetables, chocalate, nuts, tea, beets, rubarb; low sodium, decreased use of animal protein and the importance of hydration dri nking up to 2-2.5 liters of fluids and use of adding lemon to water to increase citrate in the diet. I also discussed workup to include 24 hour urine, patient was given lab information to call regarding [id number] cost if he does not have insurance coverage. Plan--discussed 24 hour urine collection, stone analysis pending, monitor kidney stones follow-up in 10 months renal ultrasound prior. 08/30/23--Clarke is a 43-year-old male who was in the ED over the weekend with left flank pain. CT imaging noted distal left ureteral stone with hydronephrosis and bilateral kidney stones. The patient states he had a kidney stone attack about 10 years ago and he passed the stone at that time. About 4 weeks ago he had pain on his left side that resolved. He states that he was discharged on medications he is taking the Flomax. He no longer has needed nausea or pain medication and did not take the antibiotics. He thinks he may have passed the stone because he has no more pain. He states that his father has kidney stones. I have reviewed the CT scan imaging films with the patient. Examination no CVA tenderness elicited or abdominal tenderness on exam. The ureteral stone measured 9 mm and due to the size is less likely to pass however at this time as the patient is asymptomatic he is not interested in a procedure. Plan will be to evaluate further with renal ultrasound in about 2 weeks if the patient has acute pain he will call the office. Discussed metabolic workup in the future with 24 hour urine collection. He was given a plastic strainer and a copy of the CT scan report. [facility] Surgical History No pertinent past surgical history Social History Patient Tobacco Use Status: Never used Tobacco Review of Systems Const All systems reviewed & are unremarkable except as noted in HPI and below Reports no additional complaints Eyes Reports no additional complaints ENT Reports no additional complaints Card Reports no additional complaints Resp Reports no additional complaints GI Reports no additional complaints Reports as per HPI Musc Reports no additional complaints Skin/Breast Reports system reviewed and no additional complaints, except as documented Neuro Reports no additional complaints Psych Reports no additional complaints Endo Reports no additional complaints Alexis/Lymph Reports no additional complaints Aller/Immun Reports no additional complaints Results Reviewed Results Reviewed: RENY: 09/01/23 STATUS: COMP REQ : [id number] RECD: 09/02/[address]: Mike Ashford MD COMP: 09/13/23 ENTERED: 09/02/[address] [facility] [address]: ORDERED: Kidney Stone QUERIES: Kidney Stone Source: [id number] Test Result Flag Reference Component 1 SEE NOTE Calcium Oxalate Dihydrate (Weddellite) 40% Carbonate Apatite ([place]) 60% See Note 1 Stone Weight 0.029 g Note 1 This test was developed and its analytical performance characteristics have been determined by [employer]. It has not been cleared or approved by the FDA. This assay has been validated pursuant to the CLIA regulations and is used for clinical purposes. THIS TEST WAS PERFORMED AT: [employer] [facility] [address] [place] [address] KASSANDRA SALCIDO MD Stone Source KIDNEY STONE Date of Service: 08/28/23 EXAMINATION: CT abdomen pelvis wo IV con CLINICAL INFORMATION: Reason for Exam left flank pain, N/V COMPARISON: No prior CT available for comparison. TECHNIQUE: Multidetector volumetric imaging was performed from the superior aspect of the liver through the pubic symphysis , noncontrast this study. Sagittal and coronal reformatted images were obtained on the technologist's workstation. This CT examination was performed using dose optimization techniques as appropriate, variously including the following: *Automated exposure control *Adjustment of mA and/or kV according to patient size (this includes techniques or standardized protocols for targeted exams where dose is matched to indication/reason for exam; i.e. extremities or head) *Use of iterative reconstruction technique DLP: 799 mGy-cm FINDINGS: LOWER THORAX: Included lung bases are clear. HEPATOBILIARY: Diffusely hypodense liver suggesting hepatic steatosis. No CT evidence of liver lesion. Focal hypodense area in the liver left lobe adjacent to the gallbladder, the location is common for focal fat sparing. GALLBLADDER: Gallbladder unremarkable. SPLEEN: Spleen is normal in size. PANCREAS: No focal mass or ductal dilatation. STOMACH AND GASTROINTESTINAL TRACT: Stomach is grossly unremarkable. There is no bowel distention or thickening. No CT evidence of appendicitis. ADRENALS: No adrenal nodules. KIDNEYS/URETERS: Left renal hydronephrosis and hydroureter due to 9 x 5 mm obstructing stone in the distal left ureter proximal to the left ureterovesicular junction. There is mild perinephric and periureteric fat stranding suggesting high degree obstruction. There are 3 nonobstructing stone in the right kidney measuring up to 4 mm. No right hydronephrosis. There are additional 2 mm stones in the left kidney middle calyx and lower calyx. URINARY BLADDER: Partially decompressed. PELVIC VISCERA: Unremarkable PERITONEUM: No free air or fluid. LYMPH NODES: No lymphadenopathy. VASCULAR:Abdominal aorta normal in size, no aneurysm found. BONES, ABDOMINAL WALL AND SOFT TISSUES: Age-appropriate changes of the spine and skeletal system, no destructive osteolytic or osteosclerotic bone lesion found IMPRESSION: 1. Left renal hydronephrosis and hydroureter due to obstructing 9 x 5 mm stone in the distal left ureter proximal to the left ureterovesicular junction. There is mild perinephric and periureteric fat stranding suggesting high degree obstruction. 2. There are additional bilateral nonobstructing kidney stones. 3. Diffusely hypodense liver suggesting hepatic steatosis. Focal hypodense area in the liver left lobe adjacent to the gallbladder, the location is common for focal fat sparing. Assessment & Plan Assessment & Plan (1) Bilateral kidney stones: Code(s): N20.0 - Calculus of kidney Category: Medical Plan Monitor kidney stones. Follow up with renal US Patient Instructions: The patient had an opportunity to ask questions regarding treatment plan. The patient expressed understanding and agreement with the above treatment plan. The patient is aware they should contact our office by phone for worsening of their current condition or the appearance of new symptoms. Compliance is encouraged with any medications and followup testing that is ordered. It is a privilege to be allowed the opportunity to participate in the urologic care of your patient. If you have any questions or concerns regarding treatment for the above conditions please do not hesitate to contact me. The office telephone contact is [phone]. This note is constructed in part using voice recognition software. While every effort has been made to ensure accuracy body and fender worker errors may have been included. Yours sincerely, Mike Ashford MD Coding Level of Care Code Est Pt Level 3 (34721) Diagnoses Bilateral kidney stones N20.0
== END 2023-11-18 08:47 | disposition home or self-care (01) ==
LOC: HO.HUSH 08:14
PROVIDERS: Visit Provider Urology
DX: N20.0 Calculus of kidney (principal)
CPT/HCPCS: 99213

== ENCOUNTER → 2023-11-18 08:14 | Outpatient (BNVA) | payer SELFPAY | PROVIDERS: Visit Provider Urology | DX: N20.0 Calculus of kidney (principal) | CPT/HCPCS: 99212 ==